=== PATIENT | female | born 1975 | race Caucasian/White ===

== ENCOUNTER 2016-08-06 15:47 | Emergency (ER) | payer OTHER ==
[~2016-08-06] VITALS: Ht 160 cm; Wt 72.6 kg
[~2016-08-06 15:47] MED LIST: BENTYL; GABAPENTIN800 MG PO; JANUVIA PO; LAC PO; LANTI SQ; LOM PO; MAC100 PO; MECLIZINE25 M1 PO; METFORMIN500 MG PO; NIT0.3; NOR10T PO; NOVI SQ; PHOSPHORUS SL; SOM350 PO
[2016-08-06 17:55] VITALS: BP 110/76
== END 2016-08-06 17:55 | disposition home or self-care (01) ==
LOC: ED 15:47
DX: S92.352A Displaced fracture of fifth metatarsal bone, left foot, initial encounter for closed fracture (principal); E11.40 Type 2 diabetes mellitus with diabetic neuropathy, unspecified; X58.XXXA Exposure to other specified factors, initial encounter; Y93.89 Activity, other specified; Y99.8 Other external cause status; Y92.89 Other specified places as the place of occurrence of the external cause

== ENCOUNTER 2017-02-07 13:23 | Inpatient (IN) | payer OTHER ==
[~2017-02-07] VITALS: Ht 160 cm; Wt 76.0 kg
[~2017-02-07 13:23] MED LIST changes: +GABAPENTIN100 M2; -GABAPENTIN800 MG PO; +METFORMIN HYDR500 M1; -METFORMIN500 MG PO
--- NOTE | 2017-02-07 13:30 | NUR ---
PT BIB DAUGHTER FOR C/O HAVING DESC IN CONSCIOUSNESS. DAUGHTER STATES 1 HR BEFORE ARRIVAL TO ED PT WAS C/O FEELING DIZZY AND WEAK. DAUGHTER STATES "SHE IS PRETTY GOOD AT HER MEDICATIONS" AFTER I INQUIRED IF THERE WAS A CHANCE OF ACCIDENTAL OVERDOSE ON DIABETES MEDS. PT RESPONSIVE ONLY TO PAINFUL STIMULI BUT WHEN WHEELED IN SHE WAS ABLE TO BEAR SLIGHT WT ON LEGS TO TRANSFER FROM WHEELCHAIR TO GURNEY WITH ASSISTANCE. PT HAS NO S/S OF RESP DISTRESS. SKIN IS WNL. PUPILS AT 2MM BILATERALLY AND FIXED.
--- NOTE | 2017-02-07 13:32 | NUR ---
MSE BY DR. BELTRÁN.
--- NOTE | 2017-02-07 13:43 | NUR ---
DR BELTRÁN AT BEDSIDE FOR REASSESSMENT. PT OPENING EYES TO TOUCH AND SOUND. MOVING LIMBS SLOWLY.
[2017-02-07 14:07] LABS: BASOPHIL % 0.5 % (0-2); PLATELET COUNT 206 x10^3mcL (130-400)
[2017-02-07 14:08] LABS: RED CELL DISTRIBUTION WIDTH 15.1 % (11.5-14.5)
[2017-02-07 14:12] LABS: ALBUMIN 2.8 g/dL (3.4-5.0); ALKALINE PHOSPHATASE 61 U/L (46-116); ALT/SGPT 22 U/L (14-59); AST/SGOT 16 U/L (15-37); BILIRUBIN TOTAL 0.2 mg/dL (0.20-1.00); CALCIUM 8.3 mg/dL (8.5-10.1); CARBON DIOXIDE 23.4 mmol/L (21-32); CHLORIDE SERUM 110 mmol/L (98-107); CHOLESTEROL 141 mg/dL (<200); CREATININE SERUM 1.2 mg/dL (0.6-1.0); GFR1 53 mL/min; POTASSIUM SERUM 3.2 mmol/L (3.5-5.1); SODIUM SERUM 143 mmol/L (136-145); TOTAL PROTEIN, SERUM 6.1 g/dL (6.4-8.2)
[2017-02-07 14:13] LABS: UA SPECIFIC GRAVITY 1.015 (1.005-1.035); microscopic required? YES; urine erythrocyte NEGATIVE (NEGATIVE)
[2017-02-07 14:14] LABS: GLUCOSE SERUM 32 mg/dL (74-106)
--- NOTE | 2017-02-07 14:25 | NUR ---
RECEIVED FROM CLAUDIA BARBA ,PT UNRESPONSIVE VERBALLY,LAB CALLED BS=30,MEDICATED WITH DEXTROSE 505 2 AMPS, REMAINS SLEEPY BUT MORE AROUSABLE ANSWERS QUESTIONS PROPERLY, MOVES ALL EXTREMITIES,
[2017-02-07 16:07] LABS: AMPHETAMINE QUAL UR NONE DETECTED (NEG <=1000)
--- NOTE | 2017-02-07 17:10 | NUR ---
REC'D PT FROM ER VIA OBI. PT IS AAOX4. DENIES DIZZINESS OR MCBRIDE. TELE #23 ST OG=187. RESP EVEN AND UNLABORED. NO SOB NOTED. 1+ EDEMA NOTED TO RLE. TRACE EDEMA TO LLE. NESBITT CATHETER IN PLACE DRAINING YELLOW URINE. PT C/O 10/10 LEFT FOOT PAIN. IV NOTED TO RAC. INTACT AND PATENT. ORIENTED PT TO CALL LIGHT. BED IN LOWEST POSITION. WILL ENDORSE TO PRIMARY RN.
[2017-02-07 17:29] VITALS: BP 111/67
[2017-02-07 17:51] LABS: PHOSPHOROUS 3.9 mg/dL (2.5-4.9)
[2017-02-07 17:55] VITALS: BP 111/67
[2017-02-07 18:00] LABS: T3 TOTAL 0.74 ng/mL
[2017-02-07 18:02] LABS: FREE T4 1.02 ng/dL (0.76-1.46); FREE THYROXINE INDEX 2.9 ug/dL (1.4-4.5); T4(THYROXINE) 8.2 ug/dL (4.7-13.3)
--- NOTE | 2017-02-07 18:30 | NUR ---
PT WITH ONGOING US DENIES PAIN/DISCOMFORT.
--- NOTE | 2017-02-07 19:33 | NUR ---
AWAKE AND VERBALLY RESPONSIVE WITH CONFUSION AND FORGETFULNESS. SKIN WARM AND DRY TO TOUCH. RESPIRATION EVENA ND UNLABORED. NO S/S OF ACUTE DIASTRESS. NESBITT CATH DISCONTINUED ORDERED. PLACED CALL LIGHT WITHIN REACH . INSTRUCTED TO CALL FOR ANY ASSIATANCE NEEDED AND VERBALIZED UNDERSTANDING.
[2017-02-07 21:22] VITALS: BP 103/49
[2017-02-07 21:34] LABS: RED BLOOD CELLS 3.23 M/mm3 (4.10-5.10)
[2017-02-07 21:37] LABS: IRON 61 ug/dL (50-170); TOTAL IRON BINDING CAPACITY 352 ug/dL (250-450)
--- NOTE | 2017-02-08 00:18 | NUR ---
BLOOD SUGAR CHECKED 176MG/DL, HRI INSULIN COVERAGE NOT GIVEN, PATIENT BADLY REFUSED, STATED ITS NORMAL FOR HER. EXPLAINED THE RISKS/BENEFITS BUT NOABVAIL. WILL COTNINUE TO MONITOR.
--- NOTE | 2017-02-08 04:10 | NUR ---
BLOOD SUGAR CHECKED 24MG/DL, REPEATED 25MG/DL. PATIENT IS ALERT AND ORIENTED TO TIME/PLACE/PERSON. 50ML D50 IVP PROTOCOL, DR MESSER MADE AWARE. CONTINUES ON IVF D5NS AT 80ML/HR ORDERED. OFFERED ORANGE JUICE BUT PREFERS APPLE JUICE AND ABLE TO CONSUME 480CC. WILL CONTINUE TO MONITOR. .
--- NOTE | 2017-02-08 05:11 | NUR ---
BLOOD SUGAR CHECKED 52MG/DL, REPEATED 50MG/DL, DR MESSER MADE AWARE WITH ORDER TO GIVE ANOTHER 50ML OF D50 IVP , AWATING FOR THE VERIFICATION OF PAHRMACY. PT IS ASSYMPTOMATIC AT THIS TIME. ALERT/ORIENTED TO TIME/PLACE/PERSON.
[2017-02-08 05:27] VITALS: BP 100/60
--- NOTE | 2017-02-08 05:30 | NUR ---
50ML D50 IVP GIVEN ORDERED BY DR ALEGRIA, FOR CONSULT WITH DR MARTI TODAY. PT MADE AWARE OF CURRENT TREATMENT PLAN OF CARE. WILL CONTINUE TO MONITOR.
[2017-02-08 06:10] LABS: CALCIUM 8.3 mg/dL (8.5-10.1); CARBON DIOXIDE 26.3 mmol/L (21-32); CREATININE SERUM 1.1 mg/dL (0.6-1.0); POTASSIUM SERUM 4.4 mmol/L (3.5-5.1)
[2017-02-08 06:21] LABS: BASOPHIL % 0.5 % (0-2); PLATELET COUNT 199 x10^3mcL (130-400)
[2017-02-08 06:26] LABS: RED CELL DISTRIBUTION WIDTH 15.3 % (11.5-14.5)
--- NOTE | 2017-02-08 06:30 | NUR ---
BLOOD SUGAR CHECKED 35MG/DL, DR JUSTO SALAZAR AWARE AND ORDERED D50 50ML IVP AND CARRIED OUT. D10 INFUSED AT 20ML/H FOR 250CC ORDERED. WILL MONITOR.
--- NOTE | 2017-02-08 07:01 | NUR ---
BLOOD SUGARM CHECKED 77MG/DL, NO S/S OF GLYCEMIC REACTION. ALERT AND ORIENTED X4 . ALL NEEDS ATTENDED.
--- NOTE | 2017-02-08 08:00 | NUR ---
RANDOM FSBS WAS 92 AT THIS TIME. PATIENT COMPLETED 100% OF BREAKFAST TRAY, SITTING UP IN BED TALKING ON PHONE. D10 INFUSING WELL AT 40ML/HR TO RT A/C. PATIENT INSTRUCTED TO USE CALL LIGHT FOR ASSIST. WILL CONTINUE TO MONITOR. DR CAAL AT BEDSIDE AND INFORMED OF PATIENT'S FSBS RESULTS. PLAN TO CONTINUE TO MONITOR PATIENT AT THIS TIME AND TO HOLD OFF TRANSFERING PATIENT TO ICU FOR NOW.
[2017-02-08 08:25] VITALS: BP 96/53
--- NOTE | 2017-02-08 08:30 | NUR ---
DR KEMP AND MEDICAL TEAM INTO SEE PATIENT AND DISCUSS PLAN OF CARE.
--- NOTE | 2017-02-08 10:00 | NUR ---
RANDOM FSB WAS 59, RECHECK WAS 50. PATIENT SITTING UP IN BED AWAKE ALERT DENIES ANY WEAKNESS OR FEELING DIZZY. D10 INFUSING WELL. NEW IV STARTED ON LEFT HAND. PATIENT GIVEN JUICE AND FOOD. WILL CONTINUE TO MONITOR AND RECHECK BLOOD SUGAR.
--- NOTE | 2017-02-08 10:06 | NUR ---
PATIENT'S PLAN OF CARE WAS DISCUSSED AND REVIEWED WITH DISPATCHER MOTOR VEHICLE:JAROCHO JOHN
--- NOTE | 2017-02-08 10:25 | NUR ---
RANDOM FSBS DONE AT AT THIS TIME. WAS 60. RECHECK DONE AND WAS 68. PATIENT SITTING UP IN BED, WITH D10 IVF INFUSING WELL.
[2017-02-08 13:00] VITALS: BP 108/61
--- NOTE | 2017-02-08 14:25 | NUR ---
RANDOM FSBS 225. DR OROZCO NOTIFIED NEW ORDERS RECEIVED FOR L6TENSU AT 20ML/HR.
--- NOTE | 2017-02-08 16:14 | NUR ---
PATIENT IS SITTING UP IN BED TALKING ON HER PHONE. IVF CHANGED TO D5 NS AT 80ML/HR ORDERED. NO CHANGE IN CONDITION NOTED. DENIES ANY WEAKNESS OR DIZZINESS. APPETITE GOOD, TOLERATING DIET WELL. WILL CONTINUE TO MONITOR.
[2017-02-08 16:30] VITALS: BP 92/51
[2017-02-08] MEDS ORDERED: APAP/OXYCODONE1 TA4 PO (17:21)
--- NOTE | 2017-02-08 17:30 | NUR ---
PATIENT SITTIING UP IN BED. C/O H/A 9/10 ON THE PAIN SCALE. PER PATIENT SHE TAKES OXYCODONE/ACETAMINOPHEN 10. DR OROZCO PAGED AND INFORMED.
--- NOTE | 2017-02-08 18:24 | NUR ---
PATIENT C/O HEADACHE 9/10 ON THE PAIN SCALE. MEDICATED WITH PERCOCET AT THIS TIME ORDERED. WILL CONTINUE TO MONITOR.
--- NOTE | 2017-02-08 18:39 | NUR ---
I HAVE REVIEWED THE DATA COLLECTION BY MARIANNE (NAME):JAROCHO JOHN ENTERED ON (DATE/TIME): I CONCUR WITH THE DATA AND ANY EXCEPTIONS OR COMMENTS ARE LISTED BELOW:
--- NOTE | 2017-02-08 20:45 | NUR ---
RECEIVED PT IN BED AAOX4 NO ACUTE DISTRESS NOTED AT THE MOMENT , PT DENY SCYNCOPE AT THE MOMENT ,ON TELE NUMBER 23 THAT SHOWS NSR , LUNG SOUNDS CTA , PIV INTACT INFUSING WELL . CALL LIGHT WITHIN PT'S REACH , WILL CON'T TO MONITOR AND ASSIST PT WITH CARE .
[2017-02-08 21:28] VITALS: BP 85/51
[2017-02-09 00:15] VITALS: BP 96/63
--- NOTE | 2017-02-09 00:35 | NUR ---
BLOOD SUGAR 163 PT REFUSED INSULIN AT THE MOMENT , WILL CON'T TO MONITOR PT CLOSELY.
--- NOTE | 2017-02-09 00:36 | NUR ---
I HAVE REVIEWED THE DATA COLLECTION BY MARIANNE (NAME):SHAKIR HOBSON ENTERED ON (DATE/TIME):02/08/172031. I CONCUR WITH THE DATA AND ANY EXCEPTIONS OR COMMENTS ARE LISTED BELOW:
[2017-02-09 05:05] VITALS: BP 94/60
--- NOTE | 2017-02-09 06:21 | NUR ---
NO CHANGES OF CONDITION NOTED , ALL MEDS GIVEN NO REACTION NOTED ,TELE NSR , PIV INTACT INFUSING WELL .
[2017-02-09 06:24] LABS: CARBON DIOXIDE 24.3 mmol/L (21-32); CREATININE SERUM 1.3 mg/dL (0.6-1.0); MAGNESIUM 1.8 mg/dL (1.8-2.4); PHOSPHOROUS 3.7 mg/dL (2.5-4.9); POTASSIUM SERUM 4.9 mmol/L (3.5-5.1)
[2017-02-09 06:28] LABS: BASOPHIL % 0.6 % (0-2); PLATELET COUNT 184 x10^3mcL (130-400); RED CELL DISTRIBUTION WIDTH 15.9 % (11.5-14.5)
--- NOTE | 2017-02-09 07:30 | NUR ---
PATIENT IS SITTING UP ON THE SIDE OF THE BED. DAUGHTER AT BEDSIDE. PATIENT ALERT AND ORIENTED, IVF INFUSING WELL. DENIES ANY H/A OR DIZZINESS. AMBULATES AD MOIZ TO THE BATHROOM. TELE 23 NSR. NO ACUTE DISTRESS NOTED. WILL CONTINUE TO MONITOR.
--- NOTE | 2017-02-09 08:00 | NUR ---
PATIENT'S PLAN OF CARE WAS DISCUSSED AND REVIEWED WITH SEWAGE TREATMENT PLANT OPERATOR:JAROCHO JOHN.
--- NOTE | 2017-02-09 08:15 | NUR ---
DR KEMP AND MEDICAL TEAM INTO SEE PATIENT AND DISCUSS PLAN OF CARE.
[2017-02-09 09:29] VITALS: BP 103/62
--- NOTE | 2017-02-09 10:03 | NUR ---
DR OROZCO NOTIFIED OF PATIENT'S UA CX RESULTS OF E-COLI AND MDRO AT THIS TIME.
[2017-02-09 13:22] VITALS: BP 137/89
--- NOTE | 2017-02-09 13:36 | NUR ---
PATIENT REMAINS IN ISOLATION FOR MDRO URINE. DENIES ANY PAIN OR DISCOMFORT. IVF INFUSING WELL. NO ACUTE DISTRESS NOTED AT THIS TIME. WILL CONTINUE TO MONITOR.
--- NOTE | 2017-02-09 18:07 | NUR ---
PATIENT REMAINS IN BED, NO CHANGE IN CONDITION NOTED. IVF INFUSING WELL. CONDITION APPEARS STABLE AT THIS TIME.
--- NOTE | 2017-02-09 18:48 | NUR ---
I HAVE REVIEWED THE DATA COLLECTION BY MARIANNE (NAME):JAROCHO JOHN ENTERED ON (DATE/TIME): I CONCUR WITH THE DATA AND ANY EXCEPTIONS OR COMMENTS ARE LISTED BELOW:
--- NOTE | 2017-02-09 19:56 | NUR ---
RECEIVED PT IN BED AAOX4 , PT DENY PAIN DIZZINESS AT THE MOMENT ,LLUNG SOUNDS CTA , ABD SOFT BS ACTIVE AT THE MOMENT , PIV TO LFA INTACT INFUSING WELL . PT'S ON CONTACT ISOLATION MDRO OF THE URINE. NO ACUTE DISTRESS NOTED AT THE MOMENT , WILL CON'T TO MONITOR PT CLOSELY.
--- NOTE | 2017-02-09 21:31 | NUR ---
BLOOD SUGAR 227 6UNITS OF REGULAR INSULIN AND HS SNACKS GIVEN , WILL CON'T TO MONITOR PT CLOSELY.
[2017-02-09 21:44] VITALS: BP 127/67
--- NOTE | 2017-02-10 00:49 | NUR ---
I HAVE REVIEWED THE DATA COLLECTION BY MARIANNE (NAME):SHAKIR HOBSON ENTERED ON (DATE/TIME):02/09/171949 I CONCUR WITH THE DATA AND ANY EXCEPTIONS OR COMMENTS ARE LISTED BELOW:
[2017-02-10 05:51] VITALS: BP 111/78
--- NOTE | 2017-02-10 06:13 | NUR ---
NO CHANGES OF CONDITION NOTED, ALL DUE MEDS GIVEN NO REACTION NOTED, PIV INTACT INFUSING WELL .
[2017-02-10 06:15] LABS: BASOPHIL % 0.7 % (0-2); PLATELET COUNT 217 x10^3mcL (130-400)
[2017-02-10 06:17] LABS: CALCIUM 8.5 mg/dL (8.5-10.1); CREATININE SERUM 1.1 mg/dL (0.6-1.0); POTASSIUM SERUM 4.8 mmol/L (3.5-5.1)
[2017-02-10 06:27] LABS: RED CELL DISTRIBUTION WIDTH 15.6 % (11.5-14.5)
--- NOTE | 2017-02-10 07:50 | NUR ---
RC'D PT RESTING IN BED WITH NO APPARENT SIGNS OF DISTRESS. A/A/O/X4, SPEECH CLEAR AND APPROPRIATE. DENIES DIZZINESS/SOB/MCBRIDE. MED-SURG. DENIES CHEST PAIN/PRESSURE. PALP PULSES, TRACE EDEMA NOTED ON BLE. RESPIRATIONS EQUAL AND UNLABORED. LUNGS CTA. ON RA, DENIES SOB. ABDOMEN SOFT AND NONTENDER. ACTIVE BS. DENIES N/V. VOIDS FREELY, REPORTS BURNING. GENERALIZED WEAKNESS. AMBULATORY WITH ASSIST. WORKING WITH PT. SKIN W/D/I. DENIES PAIN AT THIS TIME. IV PATENT AND INFUSING. BED IN LOW POSITION. EDUCATED ON USING CALL LIGHT WHEN NEEDING ASSISTANCE. CALL LIGHT IN REACH. WILL CONTINUE TO MONITOR.
[2017-02-10 09:53] VITALS: BP 115/76
[2017-02-10] MEDS ORDERED: CIPROFLOXACIN500 MG PO (11:07)
[2017-02-10 11:31] VITALS: BP 115/76
--- NOTE | 2017-02-10 13:00 | NUR ---
PT PROVIDED WITH DC HOME INSTRUCTIONS. GIVEN MEDICATION EDUCATION. MADE AWARE PRESCRIPTIONS HAVE BEEN SENT TO PT'S SELECTED PHARMACY. MADE AWARE OF FOLLOW UP APPT WITH PCP. INSTRUCTED ON IMPORTANCE OF COMPLETING ANTIBIOTIC TXAS ORDERED. MADE AWARE OF WORSENING SIGNS AND SYMPTOMS TO RETURN TO ED OR REPORT TO PCP. PT VERBALIZED UNDERSTANDING OF INSTRUCTIONS. TELE AND IV DC'D CATHETER INTACT. PT TRANSPORTED VIA WC TO THE LOBBY WITH ALL PERSONAL BELONGINGS IN HAND ACCOMPANIED BY GROCERY CLERK CHECKING AND FAMILY FREE OF ANY APPARENT DISTRESS.
--- NOTE | 2017-02-10 15:23 | NUR ---
PHYSICAL THERAPY DAILY NOTES CO-SIGN All documentation done by the Waste Disposal Leakage Tester for 02/10/17 has been reviewed. I agree with the documentation. Reviewed/Co-Signed by: Mackenzie Yancey V PT Documentation Done by: THAI CRAWFORD PTA
== END 2017-02-10 13:00 | disposition home or self-care (01) | DRG 637 ==
LOC: ED 13:23 → DU 16:06 → MU 02-10 05:44
PROVIDERS: Emergency Medicine; Family Medicine; ADMIT Family Medicine Sports Medicine
DX: E11.649 Type 2 diabetes mellitus with hypoglycemia without coma (principal); G93.41 Metabolic encephalopathy; E43 Unspecified severe protein-calorie malnutrition; D68.69 Other thrombophilia; N39.0 Urinary tract infection, site not specified; E11.42 Type 2 diabetes mellitus with diabetic polyneuropathy; N17.0 Acute kidney failure with tubular necrosis; E11.65 Type 2 diabetes mellitus with hyperglycemia; B96.29 Other Escherichia coli [E. coli] as the cause of diseases classified elsewhere; S92.355A Nondisplaced fracture of fifth metatarsal bone, left foot, initial encounter for closed fracture; E87.6 Hypokalemia; D64.9 Anemia, unspecified; Z79.4 Long term (current) use of insulin; Z68.29 Body mass index [BMI] 29.0-29.9, adult; F17.210 Nicotine dependence, cigarettes, uncomplicated; Z79.84 Long term (current) use of oral hypoglycemic drugs; X58.XXXA Exposure to other specified factors, initial encounter; Y93.9 Activity, unspecified; Y92.89 Other specified places as the place of occurrence of the external cause; Y99.9 Unspecified external cause status
CPT/HCPCS: 82962; 83880; 84439; 97110-GP; 97116-GP; 97530-GP; G0480; J0696; J2310; J3490; J7030; J7042; J7060; Q0092

== ENCOUNTER 2017-06-07 21:29 | Emergency (ER) | payer OTHER ==
[~2017-06-07] VITALS: Ht 157.5 cm; Wt 73.9 kg
[~2017-06-07 21:29] MED LIST changes: +APAP/OXYCODONE1 TA4 PO; +CIPROFLOXACIN500 MG PO
[2017-06-07 21:31] VITALS: Ht 157.5 cm; Wt 73.9 kg
[2017-06-07 22:29] LABS: BASOPHIL % 0.6 % (0-2); PLATELET COUNT 196 x10^3mcL (130-400)
[2017-06-07 22:36] LABS: CALCIUM 8.6 mg/dL (8.5-10.1); CARBON DIOXIDE 21.7 mmol/L (21-32); CREATININE SERUM 1.7 mg/dL (0.6-1.0); POTASSIUM SERUM 4.1 mmol/L (3.5-5.1)
[2017-06-07 22:48] LABS: ALBUMIN 3.6 g/dL (3.4-5.0); BILIRUBIN TOTAL 0.4 mg/dL (0.20-1.00); C REACTIVE PROTEIN 0.8 mg/dL (<=0.9); TOTAL PROTEIN, SERUM 7.2 g/dL (6.4-8.2)
[2017-06-07 22:53] LABS: CK-MB 0.5 ng/mL (0-3.6)
[2017-06-07 22:59] LABS: FREE T4 1.37 ng/dL (0.76-1.46); FREE THYROXINE INDEX 3.2 ug/dL (1.4-4.5); T4(THYROXINE) 8.1 ug/dL (4.7-13.3)
[2017-06-07 23:06] LABS: ERYTHROCYTE SED RATE 37 mm/hr (0-20)
[2017-06-07 23:09] LABS: T3 TOTAL 0.67 ng/mL
[2017-06-08] LABS: TOTAL PROTEIN CSF 34.6 mg/dL (15-45)
[2017-06-08 00:13] LABS: APPEARANCE CSF CLEAR; COLOR CSF COLORLESS; RBC CSF 0 /cumm (0); WBC CSF 0 /cumm (0-5)
[2017-06-08 00:14] LABS: APPEARANCE CSF CLEAR; COLOR CSF COLORLESS; RBC CSF 0 /cumm (0); WBC CSF 0 /cumm (0-5)
[2017-06-08 00:27] LABS: microscopic required? YES; urine erythrocyte NEGATIVE (NEGATIVE)
[2017-06-08 02:11] VITALS: BP 130/75
== END 2017-06-08 02:11 | disposition home or self-care (01) ==
LOC: ED 21:29
PROVIDERS: Specialist
DX: E86.0 Dehydration (principal); E11.40 Type 2 diabetes mellitus with diabetic neuropathy, unspecified
CPT/HCPCS: 36415; 36600; 82962; 83880; 84439; 87804; J1885; J2001; J2405; J3010; J7030

== ENCOUNTER 2017-10-15 00:04 | Emergency (ER) | payer OTHER ==
[~2017-10-15] VITALS: Ht 160 cm; Wt 79.4 kg
[2017-10-15 00:12] VITALS: Ht 160 cm; Wt 79.4 kg
[2017-10-15 01:35] LABS: BASOPHIL % 0.7 % (0-2); PLATELET COUNT 251 x10^3mcL (130-400)
[2017-10-15 01:36] LABS: RED CELL DISTRIBUTION WIDTH 14.6 % (11.5-14.5)
[2017-10-15 01:52] LABS: CARBON DIOXIDE 21.4 mmol/L (21-32); CREATININE SERUM 2.4 mg/dL (0.6-1.0); POTASSIUM SERUM 4.1 mmol/L (3.5-5.1)
[2017-10-15 01:58] LABS: ALBUMIN 3.6 g/dL (3.4-5.0); BILIRUBIN TOTAL 0.45 mg/dL (0.20-1.00); TOTAL PROTEIN, SERUM 7.7 g/dL (6.4-8.2)
[2017-10-15 05:16] VITALS: BP 131/93
== END 2017-10-15 05:16 | disposition home or self-care (01) ==
LOC: ED 00:04
PROVIDERS: Emergency Medicine
DX: N28.9 Disorder of kidney and ureter, unspecified (principal); R19.7 Diarrhea, unspecified; E11.9 Type 2 diabetes mellitus without complications
CPT/HCPCS: J7030; Q0092

== ENCOUNTER 2017-11-15 18:38 | Emergency (ER) | payer OTHER ==
[~2017-11-15] VITALS: Ht 160 cm; Wt 83.9 kg
[2017-11-15 18:41] VITALS: Ht 160 cm; Wt 83.9 kg
[2017-11-15 19:22] LABS: BASOPHIL % 0.5 % (0-2); PLATELET COUNT 257 x10^3mcL (130-400)
[2017-11-15 19:24] LABS: RED CELL DISTRIBUTION WIDTH 16.6 % (11.5-14.5)
[2017-11-15 19:25] LABS: CALCIUM 8.4 mg/dL (8.5-10.1); CARBON DIOXIDE 26.6 mmol/L (21-32); CREATININE SERUM 1.6 mg/dL (0.6-1.0); POTASSIUM SERUM 3.8 mmol/L (3.5-5.1)
[2017-11-15 19:30] LABS: ALBUMIN 3.3 g/dL (3.4-5.0); BILIRUBIN TOTAL 0.34 mg/dL (0.20-1.00); TOTAL PROTEIN, SERUM 7.4 g/dL (6.4-8.2)
[2017-11-15 20:21] VITALS: BP 123/81
== END 2017-11-15 20:21 | disposition home or self-care (01) ==
LOC: ED 18:38
PROVIDERS: Specialist
DX: R60.0 Localized edema (principal); E11.40 Type 2 diabetes mellitus with diabetic neuropathy, unspecified
CPT/HCPCS: 36415; 83880; Q0092

== ENCOUNTER 2018-01-01 22:50 | Emergency (ER) | payer OTHER, MEDICAID ==
[~2018-01-01] VITALS: Ht 160 cm; Wt 79.4 kg
[2018-01-01 23:01] VITALS: Ht 160 cm; Wt 79.4 kg
[2018-01-02 04:44] VITALS: BP 95/57
== END 2018-01-02 04:44 | disposition home or self-care (01) ==
LOC: ED 22:50
DX: R51 Headache (principal); H92.03 Otalgia, bilateral; M54.2 Cervicalgia; F17.210 Nicotine dependence, cigarettes, uncomplicated; E11.40 Type 2 diabetes mellitus with diabetic neuropathy, unspecified; Z98.890 Other specified postprocedural states
CPT/HCPCS: 87804; J1200; J1885; J2765; J7030

== ENCOUNTER 2018-02-23 20:04 | Inpatient (IN) | payer OTHER, MEDICAID ==
[~2018-02-23] VITALS: Ht 160 cm; Wt 84.8 kg
[2018-02-23 20:06] VITALS: Ht 160 cm; Wt 84.8 kg
[2018-02-23 21:18] LABS: BASOPHIL % 0.7 % (0-2); PLATELET COUNT 239 x10^3mcL (130-400); RED CELL DISTRIBUTION WIDTH 13.2 % (11.5-14.5)
[2018-02-23 21:26] LABS: CARBON DIOXIDE 23.5 mmol/L (21-32); CREATININE SERUM 1.7 mg/dL (0.6-1.0); POTASSIUM SERUM 4.5 mmol/L (3.5-5.1)
[2018-02-23 21:31] LABS: ALBUMIN 3.9 g/dL (3.4-5.0); BILIRUBIN TOTAL 0.35 mg/dL (0.20-1.00)
[2018-02-23 21:33] LABS: TOTAL PROTEIN, SERUM 8.4 g/dL (6.4-8.2)
[2018-02-23] MEDS ORDERED: GABAPENTIN800 M1 PO (21:47)
[2018-02-23] MEDS ORDERED: HCTZ/TRIAMTEREN1 CA1 PO (21:48)
[2018-02-23] MEDS ORDERED: GLIMEPIRIDE2 M1 PO ×2 (21:49)
[2018-02-23] MEDS ORDERED: PHENTERMINE HYD30 MG PO (21:50)
[2018-02-23] MEDS ORDERED: PANTOPRAZOLE SO40 M1 PO (21:50)
[2018-02-23] MEDS ORDERED: TOPIRAMATE50 M1 PO (21:51)
[2018-02-23] MEDS ORDERED: ACT30 PO (21:51)
[2018-02-23] MEDS ORDERED: MELOXICAM7.5 M1 PO (21:52)
[2018-02-23] MEDS ORDERED: CYCLOBENZAPRINE10 MG PO (21:52)
[2018-02-23] MEDS ORDERED: DICYCLOMINE HCL10 MG PO (21:53)
[2018-02-23] MEDS ORDERED: METFORMIN HCL850 MG PO (21:54)
[2018-02-23] MEDS ORDERED: REQUIP0.5 MG PO (21:54)
[2018-02-23] MEDS ORDERED: PERCOCET1 TA5 PO (21:55)
[2018-02-23 23:05] LABS: MAGNESIUM 1.6 mg/dL (1.8-2.4); PHOSPHOROUS 3.2 mg/dL (2.5-4.9)
[2018-02-23 23:06] LABS: CHOLESTEROL/HDL RATIO 2.6
[2018-02-24] VITALS: BP 117/76
[2018-02-24 06:00] VITALS: BP 99/61
[2018-02-24 07:23] LABS: BASOPHIL % 0.6 % (0-2); PLATELET COUNT 206 x10^3mcL (130-400); RED CELL DISTRIBUTION WIDTH 13.5 % (11.5-14.5)
[2018-02-24 07:49] LABS: CALCIUM 8.7 mg/dL (8.5-10.1); CARBON DIOXIDE 24.4 mmol/L (21-32); CREATININE SERUM 1.5 mg/dL (0.6-1.0); MAGNESIUM 1.5 mg/dL (1.8-2.4); PHOSPHOROUS 3.8 mg/dL (2.5-4.9); POTASSIUM SERUM 4.6 mmol/L (3.5-5.1)
[2018-02-24 09:37] VITALS: BP 108/69
[2018-02-24 09:44] LABS: microscopic required? YES; urine erythrocyte TRACE (NEGATIVE)
[2018-02-24 10:20] LABS: AMPHETAMINE QUAL UR NONE DETECTED (See below)
[2018-02-24 13:45] VITALS: BP 120/84
[2018-02-24 17:25] VITALS: BP 100/67
[2018-02-25 05:09] VITALS: BP 96/61
[2018-02-25 07:44] LABS: BASOPHIL % 0.6 % (0-2); PLATELET COUNT 208 x10^3mcL (130-400); RED CELL DISTRIBUTION WIDTH 13.4 % (11.5-14.5)
[2018-02-25 07:53] LABS: CALCIUM 8.4 mg/dL (8.5-10.1); CARBON DIOXIDE 24.7 mmol/L (21-32); CREATININE SERUM 1.8 mg/dL (0.6-1.0); MAGNESIUM 2.2 mg/dL (1.8-2.4); POTASSIUM SERUM 4.8 mmol/L (3.5-5.1)
[2018-02-25 09:12] VITALS: BP 97/60
[2018-02-25 13:46] VITALS: BP 98/67
[2018-02-25 17:21] VITALS: BP 135/93
[2018-02-25 20:50] VITALS: BP 108/64
[2018-02-26 06:23] LABS: CALCIUM 8.4 mg/dL (8.5-10.1); CARBON DIOXIDE 22.8 mmol/L (21-32)
[2018-02-26 09:35] VITALS: BP 98/64
[2018-02-26 09:39] LABS: BASOPHIL % 0.5 % (0-2); PLATELET COUNT 190 x10^3mcL (130-400); RED CELL DISTRIBUTION WIDTH 13.3 % (11.5-14.5)
[2018-02-26 12:51] VITALS: BP 120/71
[2018-02-26 20:59] VITALS: BP 102/64
[2018-02-27 05:47] VITALS: BP 96/60
[2018-02-27 05:59] LABS: BASOPHIL % 0.8 % (0-2); PLATELET COUNT 185 x10^3mcL (130-400); RED CELL DISTRIBUTION WIDTH 13.4 % (11.5-14.5)
[2018-02-27 06:33] LABS: CALCIUM 8.4 mg/dL (8.5-10.1); CARBON DIOXIDE 20.2 mmol/L (21-32); CREATININE SERUM 1.6 mg/dL (0.6-1.0)
[2018-02-27 08:27] VITALS: BP 104/60
[2018-02-27 12:18] VITALS: BP 105/60
[2018-02-27 14:08] VITALS: BP 105/60
== END 2018-02-27 15:11 | disposition home or self-care (01) | DRG 205 ==
LOC: ED 20:04 → DU 22:19
PROVIDERS: Emergency Medicine; Family Medicine
DX: M94.0 Chondrocostal junction syndrome [Tietze] (principal); N17.0 Acute kidney failure with tubular necrosis; E87.1 Hypo-osmolality and hyponatremia; T21.22XD Burn of second degree of abdominal wall, subsequent encounter; E11.65 Type 2 diabetes mellitus with hyperglycemia; I12.9 Hypertensive chronic kidney disease with stage 1 through stage 4 chronic kidney disease, or unspecified chronic kidney disease; N18.9 Chronic kidney disease, unspecified; E11.22 Type 2 diabetes mellitus with diabetic chronic kidney disease; E83.42 Hypomagnesemia; D63.8 Anemia in other chronic diseases classified elsewhere; F17.210 Nicotine dependence, cigarettes, uncomplicated; E66.9 Obesity, unspecified; Z68.33 Body mass index [BMI] 33.0-33.9, adult; Z79.84 Long term (current) use of oral hypoglycemic drugs; Z79.4 Long term (current) use of insulin; X10.1XXD Contact with hot food, subsequent encounter
CPT/HCPCS: 82962; 83880; A9500; J2270; J2405; J2785; J3475; J7030; Q0092

== ENCOUNTER 2018-04-06 00:19 | Emergency (ER) | payer OTHER, MEDICARE ==
[~2018-04-06] VITALS: Ht 160 cm; Wt 82.6 kg
[~2018-04-06 00:19] MED LIST changes: +ACT30 PO; +CYCLOBENZAPRINE10 MG PO; +DICYCLOMINE HCL10 MG PO; +GABAPENTIN800 M1 PO; +GLIMEPIRIDE2 M1 PO; +HCTZ/TRIAMTEREN1 CA1 PO; +MELOXICAM7.5 M1 PO; +METFORMIN HCL850 MG PO; +PANTOPRAZOLE SO40 M1 PO; +PERCOCET1 TA5 PO; +PHENTERMINE HYD30 MG PO; +REQUIP0.5 MG PO; +TOPIRAMATE50 M1 PO
[2018-04-06 00:33] VITALS: Ht 160 cm; Wt 82.6 kg
[2018-04-06 01:01] LABS: BASOPHIL % 0.9 % (0-2); PLATELET COUNT 235 x10^3mcL (130-400); RED CELL DISTRIBUTION WIDTH 11.7 % (11.5-14.5)
[2018-04-06 01:12] LABS: CALCIUM 8.4 mg/dL (8.5-10.1); CARBON DIOXIDE 22.1 mmol/L (21-32); CREATININE SERUM 2.9 mg/dL (0.6-1.0); POTASSIUM SERUM 4.2 mmol/L (3.5-5.1)
[2018-04-06 01:19] LABS: ALBUMIN 3.6 g/dL (3.4-5.0); BILIRUBIN TOTAL 0.33 mg/dL (0.20-1.00); TOTAL PROTEIN, SERUM 7.4 g/dL (6.4-8.2); URIC ACID 9.2 mg/dL (2.6-6.0)
[2018-04-06 01:50] VITALS: BP 114/65
== END 2018-04-06 01:50 | disposition home or self-care (01) ==
LOC: ED 00:19
PROVIDERS: Emergency Medicine
DX: R07.89 Other chest pain (principal); M54.2 Cervicalgia; M25.511 Pain in right shoulder; E11.9 Type 2 diabetes mellitus without complications
CPT/HCPCS: 36415; J1885; Q0092

== ENCOUNTER 2018-04-16 17:36 | Emergency (ER) | payer OTHER, MEDICAID ==
[2018-04-16 19:51] VITALS: BP 112/71
== END 2018-04-16 19:51 | disposition home or self-care (01) ==
LOC: ED 17:36
DX: M25.561 Pain in right knee (principal); E11.40 Type 2 diabetes mellitus with diabetic neuropathy, unspecified; Z98.890 Other specified postprocedural states
CPT/HCPCS: J1885; Q0162

== ENCOUNTER 2019-07-24 22:07 | Emergency (ER) | payer BC, MEDICAID ==
[~2019-07-24] VITALS: Ht 160 cm; Wt 90.7 kg
[2019-07-24 22:16] VITALS: Ht 160 cm; Wt 90.7 kg
[2019-07-24 23:06] VITALS: BP 118/65
== END 2019-07-24 23:06 | disposition home or self-care (01) ==
LOC: ED 22:07
DX: S83.91XA Sprain of unspecified site of right knee, initial encounter (principal); E11.9 Type 2 diabetes mellitus without complications; Z98.890 Other specified postprocedural states; W01.0XXA Fall on same level from slipping, tripping and stumbling without subsequent striking against object, initial encounter; Y93.89 Activity, other specified; Y92.89 Other specified places as the place of occurrence of the external cause; Y99.8 Other external cause status
CPT/HCPCS: J1885; Q0092

== ENCOUNTER 2020-02-06 20:02 | Emergency (ER) | payer BC, MEDICAID ==
[~2020-02-06] VITALS: Ht 160 cm; Wt 81.6 kg
[2020-02-06 20:03] VITALS: Ht 160 cm; Wt 81.6 kg
[2020-02-06 21:24] VITALS: BP 134/87
== END 2020-02-06 21:25 | disposition home or self-care (01) ==
LOC: ED 20:02
DX: K08.89 Other specified disorders of teeth and supporting structures (principal); E11.9 Type 2 diabetes mellitus without complications; Z98.890 Other specified postprocedural states
CPT/HCPCS: J1885; Q0162